=== PATIENT | male | born 1960 | race Caucasian/White ===

== ENCOUNTER 2023-09-17 11:59 | Emergency (ER) | payer OTHER ==
[~2023-09-17] VITALS: Ht 172.7 cm; Wt 89.4 kg
[2023-09-17 12:04] VITALS: BP 157/96; PULSE 85; RESP 14; TEMP 97.8; O2SAT 98
[2023-09-17] MEDS ORDERED: PROCHLORPERAZINE 10 MG/2 ML VIAL IM ONE (13:05)
[2023-09-17] MEDS ORDERED: KETOROLAC 60 MG/2 ML VIAL IM ONE (13:05)
[2023-09-17 13:35] VITALS: O2SAT 98
[2023-09-17] MEDS ORDERED: ACET-9234 PO (14:14)
== END 2023-09-17 14:36 | disposition home or self-care (01) ==
LOC: MED 11:59
DX: G44.209 Tension-type headache, unspecified, not intractable (principal); E11.9 Type 2 diabetes mellitus without complications; I10 Essential (primary) hypertension; Z79.899 Other long term (current) drug therapy
CPT/HCPCS: 70450; 82948; 96372; 99285; J0780; J1885

== ENCOUNTER 2024-04-19 19:42 | Emergency (ER) | payer OTHER ==
[~2024-04-19] VITALS: Ht 170.2 cm; Wt 81.6 kg
[~2024-04-19 19:42] MED LIST: ACET-9234 PO
[2024-04-19 19:51] VITALS: BP 158/97; PULSE 79; RESP 18; TEMP 98.2; O2SAT 98
[2024-04-19 20:19] VITALS: BP 158/97; PULSE 79; RESP 18; TEMP 98.2; O2SAT 98
== END 2024-04-19 20:19 | disposition left against medical advice (07) ==
LOC: MED 19:42
DX: R42 Dizziness and giddiness (principal); Z53.21 Procedure and treatment not carried out due to patient leaving prior to being seen by health care provider